=== PATIENT | female | born 1970 | race Hispanic/Latino ===

== ENCOUNTER 2017-10-11 19:28 | Emergency (ER) | payer BC ==
[2017-10-11 19:35] VITALS: BP 117/53; PULSE 78; RESP 18; TEMP 98; O2SAT 98
[2017-10-11] MEDS ORDERED: Naproxen 500 MG TAB PO ONE (19:38)
[2017-10-11] MEDS ORDERED: Bacitracin 500 Units/gm Oint Foilpak UD TOP STA (19:39)
--- NOTE | 2017-10-11 19:59 | ED PDOC ---
Upper Extremity Pain/Injury Time Seen by Provider: 10/11/17 19:37 Chief Complaint (Nursing): Upper Extremity Problem/Injury Chief Complaint (Provider): Upper Extremity Problem/Injury History Per: Patient History/Exam Limitations: no limitations Onset/Duration Of Symptoms: Days (x today) Current Symptoms Are (Timing): Still Present Additional Complaint(s): Sanjana is a 47 year old female who presents to the emergency department with left thumb injury, onset earlier today. Patient states she poke herself with a pair of scissors. Reports numbing sensation to the thumb. Denies foreign body sensation. Does not recall last tetanus shot. PMD: José Past Medical History Reviewed: Historical Data, Nursing Documentation, Vital Signs Vital Signs: Last Vital Signs Temp 98 F 10/11/17 19:32 Pulse 78 10/11/17 19:32 Resp 18 10/11/17 19:32 BP 117/53 L 10/11/17 19:32 Pulse Ox 98 10/11/17 19:32 - Medical History PMH: No Chronic Diseases - Surgical History Surgical History: No Surg Hx - Family History Family History: States: Unknown Family Hx - Home Medications Home Medications: Ambulatory Orders Medication Instructions Recorded Amoxicillin/Clavulanate [Augmentin 1 tab PO BID #20 tab 10/11/17 500 MG-125 MG] - Allergies Allergies/Adverse Reactions: Allergies Allergy/AdvReac Type Severity Reaction Status Date / Time No Known Allergies Allergy Verified 10/11/17 19:32 Review of Systems ROS Statement: Except As Marked, All Systems Reviewed And Found Negative Musculoskeletal: Positive for: Other (Left Thumb Injury) Physical Exam - Physical Exam Pulses-Radial (L): 2+ Extremity: Positive for: Capillary Refill (less than 2 seconds), Other ( superficial linear wound noted to Left thumb distal phalanx that is not gaping without active bleeding, mild brusing noted on opposited side of wound) - ECG O2 Sat by Pulse Oximetry: 98 (RA) Pulse Ox Interpretation: Normal - Radiology X-Ray: Interpreted by Me (L thumb x-ray) X-Ray Interpretation: Other (? chip fx on distal phalanx of L thumb) - Progress ED Course And Treament: Wound irrigated heavily with NS. Bacitracin ointment applied. DSD applied. Finger splint applied. Medical Decision Making Medical Decision Making: Time: 19:38 Plan: - Adacel 0.5 ml IM - Bacitracin 1 each TOP STAT - Naproxen 500 mg PO - Left Thumb X-Ray Upon provider evaluation patient is medically stable, and requires no further treatment in the ED at this time. Patient will be discharged with Rx for Augmentin. Counseling was provided and all questions were answered regarding diagnosis. There is agreement to discharge plan. Return if symptoms persist or worsen. Scribe Attestation: Documented by Buddy Brody, acting as a scribe for SANDIP White. Provider Scribe Attestation: All medical record entries made by the Scribe were at my direction and personally dictated by me. I have reviewed the chart and agree that the record accurately reflects my personal performance of the history, physical exam, medical decision making, and the department course for this patient. I have also personally directed, reviewed, and agree with the discharge instructions and disposition. Disposition - Clinical Impression Clinical Impression: Puncture wound, Thumb injury - Patient ED Disposition Is Patient to be Admitted: No - Disposition Referrals: Fitz Mejia MD [Staff Provider] - August Green MD [Medical Doctor] - Disposition: Routine/Home Disposition Time: 20:11 Condition: STABLE Additional Instructions: Follow up with orthopedist for further evaluation. Prescriptions: Amoxicillin/Clavulanate [Augmentin 500 MG-125 MG] 1 tab PO BID #20 tab Instructions: Puncture Wound (ED) Forms: [employer] (Korean)
--- NOTE | 2017-10-12 09:32 | RAD ---
PROCEDURE: Left Thumb radiographs. HISTORY: trauma COMPARISON: None. TECHNIQUE: AP radiograph of the left hand, as well as spot oblique and lateral images of thumb were obtained. FINDINGS: LEFT THUMB: Normal left thumb, without fracture or focal lesion. Remainder of the left hand (as seen on the AP view) grossly unremarkable. JOINTS: Normal. SOFT TISSUES: Normal. OTHER FINDINGS: None. IMPRESSION: Normal left thumb radiographs.
== END 2017-10-11 20:30 | disposition home or self-care (01) ==
LOC: H.ER 19:28
DX: S61.032A Puncture wound without foreign body of left thumb without damage to nail, initial encounter (principal); W26.8XXA Contact with other sharp object(s), not elsewhere classified, initial encounter; Y92.89 Other specified places as the place of occurrence of the external cause